=== PATIENT | male | born 1965 | race Caucasian/White ===

== ENCOUNTER 2016-09-24 01:37 | Emergency (ER) | payer OTHER ==
[2016-09-24 04:34] LABS: HEMOGLOBIN 14.6 gm/dl (14.0-17.5); RED BLOOD COUNT 4.68 M/UL (4.20-5.50); WHITE BLOOD COUNT 9.7 K/UL (4.5-11.0)
[2016-09-24 05:00] LABS: BUN/CREATININE RATIO 21 (0-10)
== END 2016-09-24 08:42 | disposition home or self-care (01) ==
LOC: ER1 01:37
PROVIDERS: Physician Assistant
DX: R10.13 Epigastric pain (principal); R74.8 Abnormal levels of other serum enzymes; R11.0 Nausea; I25.10 Atherosclerotic heart disease of native coronary artery without angina pectoris; I25.2 Old myocardial infarction; I10 Essential (primary) hypertension; E78.5 Hyperlipidemia, unspecified; F17.210 Nicotine dependence, cigarettes, uncomplicated; Z79.899 Other long term (current) drug therapy
CPT/HCPCS: 36415; 71010; 80053; 81001; 82550; 82553; 83690; 83874; 84484; 85025; 93005; 99284; J7050; Q0162; Q9962

== ENCOUNTER 2020-07-31 19:17 | Emergency (ER) | payer OTHER ==
[~2020-07-31 19:17] MED LIST: IBUPROFEN600 MG PO; LEVOFLOXACIN500 MG PO; OMNICEF 300 MG300 MG PO; ROBITUSSIN100 MG/53 PO
[2020-07-31 20:10] LABS: HEMOGLOBIN 13.8 gm/dl (14.0-17.5); RED BLOOD COUNT 4.42 M/UL (4.20-5.50); WHITE BLOOD COUNT 7.3 K/UL (4.5-11.0)
[2020-07-31 20:49] LABS: BUN/CREATININE RATIO 22 (0-10)
== END 2020-08-01 00:35 | disposition other institution (70) ==
LOC: ER1 19:17
PROVIDERS: Family Medicine
DX: I65.22 Occlusion and stenosis of left carotid artery (principal); Z20.822 Contact with and (suspected) exposure to COVID-19; R47.01 Aphasia; R82.5 Elevated urine levels of drugs, medicaments and biological substances
CPT/HCPCS: 0240U; 36600; 51702; 70450; 70496; 70498; 71045; 80053; 80307; 81001; 82140; 82550; 82553; 82803; 83605; 83874; 84484; 85025; 85610; 93005; 96374; 96375; 99285; G0480; J2310; Q9967

== ENCOUNTER 2021-03-18 02:35 | Inpatient (IN) | payer OTHER ==
[~2021-03-18] VITALS: Ht 167.6 cm; Wt 68.0 kg
[2021-03-18 06:28] LABS: HEMOGLOBIN 12.7 gm/dl (14.0-17.5); RED BLOOD COUNT 4.1 M/UL (4.20-5.50); WHITE BLOOD COUNT 9.7 K/UL (4.5-11.0)
[2021-03-18 07:01] LABS: BUN/CREATININE RATIO 17 (0-10)
[2021-03-18] MEDS ORDERED: BRILINTA60 MG PO (12:57)
[2021-03-18] MEDS ORDERED: CARVEDILOL6.25 MG PO (12:57)
[2021-03-18] MEDS ORDERED: ASPIRIN81 MG PO (12:58)
[2021-03-18] MEDS ORDERED: SILDENAFIL20 MG PO (13:00)
[2021-03-18] MEDS ORDERED: LIPITOR80 MG PO (13:01)
== END 2021-03-18 16:19 | disposition left against medical advice (07) | DRG 291 ==
LOC: ER1 02:35 → CDU 06:15
PROVIDERS: Emergency Medicine; Internal Medicine; ADMIT Internal Medicine
PROC: B24BZZ4 Ultrasonography of Heart with Aorta, Transesophageal (ICD-10-PCS; principal; 2021-03-18)
DX: I11.0 Hypertensive heart disease with heart failure (principal); J96.01 Acute respiratory failure with hypoxia; I50.43 Acute on chronic combined systolic (congestive) and diastolic (congestive) heart failure; F15.99 Other stimulant use, unspecified with unspecified stimulant-induced disorder; Z20.822 Contact with and (suspected) exposure to COVID-19; I25.10 Atherosclerotic heart disease of native coronary artery without angina pectoris; E78.5 Hyperlipidemia, unspecified; J44.9 Chronic obstructive pulmonary disease, unspecified; F17.210 Nicotine dependence, cigarettes, uncomplicated; Z95.5 Presence of coronary angioplasty implant and graft; Z86.73 Personal history of transient ischemic attack (TIA), and cerebral infarction without residual deficits; Z98.890 Other specified postprocedural states; Z88.0 Allergy status to penicillin; Z82.49 Family history of ischemic heart disease and other diseases of the circulatory system
CPT/HCPCS: ECHO; 36600; 71045; 80053; 80061; 80307; 81001; 82550; 82553; 82803; 83036; 83605; 83874; 83880; 84439; 84443; 84484; 84550; 85025; 85610; 85730; 93005; 93306; 99285; G0378; J1644; J1885; J1940; J2405; U0002

== ENCOUNTER 2021-04-10 17:00 | Inpatient (IN) | payer OTHER ==
[~2021-04-10] VITALS: Ht 167.6 cm; Wt 58.7 kg
[~2021-04-10 17:00] MED LIST changes: +ASPIRIN81 MG PO; +BRILINTA60 MG PO; +CARVEDILOL6.25 MG PO; +LIPITOR80 MG PO; +SILDENAFIL20 MG PO
[2021-04-10 18:35] LABS: RED BLOOD COUNT 4.78 M/UL (4.20-5.50); WHITE BLOOD COUNT 10.3 K/UL (4.5-11.0)
[2021-04-10 18:39] LABS: BUN/CREATININE RATIO 18 (0-10)
[2021-04-10] MEDS ORDERED: PEPCID40 MG PO (22:26)
[2021-04-11 03:10] LABS: HEMOGLOBIN 16.6 gm/dl (14.0-17.5); RED BLOOD COUNT 5.13 M/UL (4.20-5.50); WHITE BLOOD COUNT 8.7 K/UL (4.5-11.0)
[2021-04-11 03:56] LABS: BUN/CREATININE RATIO 22 (0-10)
[2021-04-12 04:11] LABS: HEMOGLOBIN 14.5 gm/dl (14.0-17.5); RED BLOOD COUNT 4.47 M/UL (4.20-5.50); WHITE BLOOD COUNT 16.5 K/UL (4.5-11.0)
[2021-04-12 05:04] LABS: BUN/CREATININE RATIO 31 (0-10)
[2021-04-13 05:10] LABS: HEMOGLOBIN 14.7 gm/dl (14.0-17.5); RED BLOOD COUNT 4.62 M/UL (4.20-5.50)
[2021-04-13 05:18] LABS: WHITE BLOOD COUNT 11.8 K/UL (4.5-11.0)
[2021-04-13 05:32] LABS: BUN/CREATININE RATIO 23 (0-10)
[2021-04-13] MEDS ORDERED: FUROSEMIDE20 MG PO (11:47)
[2021-04-13] MEDS ORDERED: LISINOPRIL5 MG PO (11:47)
[2021-04-13] MEDS ORDERED: NICOTINE PATCH1 EAC2 TOP (11:47)
== END 2021-04-13 19:37 | disposition home or self-care (01) | DRG 286 ==
LOC: ER1 17:00 → PROG CARE 20:14 → CDU 20:14 → PROG CARE 21:42
PROVIDERS: Emergency Medicine; Internal Medicine; Nurse Practitioner; ADMIT Internal Medicine
PROC: 4A023N7 Measurement of Cardiac Sampling and Pressure, Left Heart, Percutaneous Approach (ICD-10-PCS; principal; 2021-04-13)
PROC: B2111ZZ Fluoroscopy of Multiple Coronary Arteries using Low Osmolar Contrast (ICD-10-PCS; 2021-04-13)
DX: I11.0 Hypertensive heart disease with heart failure (principal); J96.01 Acute respiratory failure with hypoxia; I50.23 Acute on chronic systolic (congestive) heart failure; E43 Unspecified severe protein-calorie malnutrition; R64 Cachexia; Z20.822 Contact with and (suspected) exposure to COVID-19; I25.5 Ischemic cardiomyopathy; R47.9 Unspecified speech disturbances; I10 Essential (primary) hypertension; E78.5 Hyperlipidemia, unspecified; G31.84 Mild cognitive impairment of uncertain or unknown etiology; J44.9 Chronic obstructive pulmonary disease, unspecified; F17.210 Nicotine dependence, cigarettes, uncomplicated; I08.1 Rheumatic disorders of both mitral and tricuspid valves; F19.10 Other psychoactive substance abuse, uncomplicated; Z79.82 Long term (current) use of aspirin; Z99.81 Dependence on supplemental oxygen; Z71.6 Tobacco abuse counseling; Z82.49 Family history of ischemic heart disease and other diseases of the circulatory system; Z88.0 Allergy status to penicillin; Z68.20 Body mass index [BMI] 20.0-20.9, adult; I25.2 Old myocardial infarction
CPT/HCPCS: 36415; 36600; 71045; 80048; 80053; 80061; 80307; 81001; 82550; 82553; 82803; 83605; 83690; 83735; 83874; 83880; 84100; 84132; 84484; 84550; 85025; 85379; 85384; 85610; 85730; 87040; 93005; 94640; 94664; 94760; 96374; 96375; 99152; 99153; 99285; C1769; C1887; C1894; J1644; J1650; J1940; J2250; J2930; J3010; J3475; J7040; Q9967; U0002

== ENCOUNTER 2021-06-03 16:41 | Emergency (ER) | payer OTHER ==
[~2021-06-03 16:41] MED LIST changes: +FUROSEMIDE20 MG PO; +LISINOPRIL5 MG PO; +NICOTINE PATCH1 EAC2 TOP; +PEPCID40 MG PO
== END 2021-06-03 17:55 | disposition left against medical advice (07) ==
LOC: ER1 16:41
DX: Z53.21 Procedure and treatment not carried out due to patient leaving prior to being seen by health care provider (principal)

== ENCOUNTER 2021-06-22 14:52 | Inpatient (IN) | payer OTHER ==
[~2021-06-22] VITALS: Ht 170.2 cm; Wt 66.7 kg
[~2021-06-22 14:52] MED LIST changes: -ACETAMINOPHEN500 M1 PO; -ELIQUIS5 MG PO; -FUROSEMIDE80 MG PO; -POTASSIUM CHLO10 ME1 PO
[2021-06-22 16:32] LABS: HEMOGLOBIN 13.5 gm/dl (14.0-17.5); RED BLOOD COUNT 4.33 M/UL (4.20-5.50); WHITE BLOOD COUNT 7.2 K/UL (4.5-11.0)
[2021-06-22 17:56] LABS: BUN/CREATININE RATIO 14 (0-10)
[2021-06-23 06:57] LABS: HEMOGLOBIN 12.7 gm/dl (14.0-17.5); RED BLOOD COUNT 4.1 M/UL (4.20-5.50); WHITE BLOOD COUNT 8.7 K/UL (4.5-11.0)
[2021-06-23 07:25] LABS: BUN/CREATININE RATIO 18 (0-10)
[2021-06-23] MEDS ORDERED: FUROSEMIDE80 MG PO (10:16)
[2021-06-23] MEDS ORDERED: POTASSIUM CHLO10 ME1 PO (10:17)
[2021-06-23] MEDS ORDERED: ELIQUIS5 MG PO (10:20)
[2021-06-23] MEDS ORDERED: ACETAMINOPHEN500 M1 PO (10:20)
[2021-06-24 03:56] LABS: HEMOGLOBIN 13.6 gm/dl (14.0-17.5); RED BLOOD COUNT 4.36 M/UL (4.20-5.50); WHITE BLOOD COUNT 8.4 K/UL (4.5-11.0)
[2021-06-24 04:25] LABS: BUN/CREATININE RATIO 18 (0-10)
[2021-06-24 08:12] LABS: HBSAG SCREEN Negative (Negative); HEP A AB, IGM Negative (Negative); HEP B CORE AB, IGM Negative (Negative); HEP C VIRUS AB 0.1 (0.0-0.9)
[2021-06-24 22:06] LABS: BORDETELLA PARAPERTUSSIS Not Detected (Not Detectd); BORDETELLA PERTUSSIS Not Detected (Not Detectd); CHLAMYDIA PNEUMONIAE Not Detected (Not Detectd); CORONAVIRUS HKU1 Not Detected (Not Detectd); CORONAVIRUS NL63 Not Detected (Not Detectd); CORONAVIRUS OC43 Not Detected (Not Detectd); CORONOAVIRUS 229E Not Detected (Not Detectd); HUMAN METAPNEUMOVIRUS Not Detected (Not Detectd); HUMAN RHINOVIRUS/ENTEROVIRUS Not Detected (Not Detectd); INFLUENZA A Not Detected (Not Detectd); INFLUENZA B Not Detected (Not Detectd); MYCOPLASMA PNEUMONIAE Not Detected (Not Detectd); PARAINFLUENZA VIRUS 1 Not Detected (Not Detectd); PARAINFLUENZA VIRUS 2 Not Detected (Not Detectd); PARAINFLUENZA VIRUS 3 Not Detected (Not Detectd); PARAINFLUENZA VIRUS 4 Not Detected (Not Detectd)
[2021-06-24 23:04] LABS: RESPIRATORY SYNCYTIAL VIRUS DETECTED (Not Detectd); SARS-CoV-2 NOT DETECTED (Not Detectd)
[2021-06-25 03:42] LABS: HEMOGLOBIN 13.2 gm/dl (14.0-17.5); RED BLOOD COUNT 4.24 M/UL (4.20-5.50)
[2021-06-25 04:02] LABS: BUN/CREATININE RATIO 20 (0-10)
[2021-06-26 05:12] LABS: HEMOGLOBIN 13.1 gm/dl (14.0-17.5); RED BLOOD COUNT 4.25 M/UL (4.20-5.50); WHITE BLOOD COUNT 9.7 K/UL (4.5-11.0)
[2021-06-26 05:14] LABS: BUN/CREATININE RATIO 21 (0-10)
[2021-06-27 06:22] LABS: HEMOGLOBIN 13.9 gm/dl (14.0-17.5); RED BLOOD COUNT 4.62 M/UL (4.20-5.50); WHITE BLOOD COUNT 8.9 K/UL (4.5-11.0)
[2021-06-27 07:15] LABS: BUN/CREATININE RATIO 18 (0-10)
[2021-06-28 05:32] LABS: BUN/CREATININE RATIO 26 (0-10)
[2021-06-28] MEDS ORDERED: JANTOVEN7.5 MG PO (10:24)
[2021-06-28] MEDS ORDERED: VALSARTAN80 MG PO (10:24)
[2021-06-28] MEDS ORDERED: DOXYCYCLINE HY100 M2 PO (10:24)
[2021-06-28] MEDS ORDERED: CARVEDILOL12.5 MG PO (10:24)
[2021-06-28] MEDS ORDERED: LASIX40 MG PO (10:24)
== END 2021-06-28 11:00 | disposition left against medical advice (07) | DRG 291 ==
LOC: ER1 14:52 → CDU 18:00 → PROG CARE 18:00
PROVIDERS: Emergency Medicine; Internal Medicine; Physician Assistant; ADMIT Internal Medicine
DX: I11.0 Hypertensive heart disease with heart failure (principal); I50.23 Acute on chronic systolic (congestive) heart failure; J18.9 Pneumonia, unspecified organism; E44.0 Moderate protein-calorie malnutrition; Z20.822 Contact with and (suspected) exposure to COVID-19; F15.10 Other stimulant abuse, uncomplicated; I42.8 Other cardiomyopathies; I25.10 Atherosclerotic heart disease of native coronary artery without angina pectoris; I27.20 Pulmonary hypertension, unspecified; E78.5 Hyperlipidemia, unspecified; I08.1 Rheumatic disorders of both mitral and tricuspid valves; R74.01 Elevation of levels of liver transaminase levels; E87.6 Hypokalemia; I51.3 Intracardiac thrombosis, not elsewhere classified; F17.200 Nicotine dependence, unspecified, uncomplicated; Z95.1 Presence of aortocoronary bypass graft; Z86.73 Personal history of transient ischemic attack (TIA), and cerebral infarction without residual deficits; Z95.5 Presence of coronary angioplasty implant and graft; Z88.0 Allergy status to penicillin; Z91.14 Patient's other noncompliance with medication regimen; Z68.24 Body mass index [BMI] 24.0-24.9, adult; Z79.899 Other long term (current) drug therapy; Z79.82 Long term (current) use of aspirin
CPT/HCPCS: 36415; 71045; 71250; 76705; 80048; 80053; 80074; 80202; 80307; 82550; 82553; 83690; 83735; 83874; 83880; 84100; 84484; 85025; 85610; 85730; 86140; 87633; 93005; 94640; 94645; 94760; 96374; 96375; 99285; J1644; J1940; J1956; J3370; J3475; J7070; U0002

== ENCOUNTER → 2021-06-22 | Outpatient (CLI) | payer OTHER ==
[~2021-06-22] MED LIST changes: +ACETAMINOPHEN500 M1 PO; +ELIQUIS5 MG PO; +FUROSEMIDE80 MG PO; +POTASSIUM CHLO10 ME1 PO
== END ==
LOC: HEART 5 09:30
DX: I50.9 Heart failure, unspecified (principal); I27.20 Pulmonary hypertension, unspecified; I08.1 Rheumatic disorders of both mitral and tricuspid valves
CPT/HCPCS: 93306

== ENCOUNTER 2021-07-06 14:45 | Observation (INO) | payer OTHER ==
[~2021-07-06] VITALS: Ht 165.1 cm; Wt 61.7 kg
[~2021-07-06 14:45] MED LIST changes: -ASPIRIN EC81 MG PO
[2021-07-06 23:10] LABS: HEMOGLOBIN 13.7 gm/dl (14.0-17.5); RED BLOOD COUNT 4.39 M/UL (4.20-5.50); WHITE BLOOD COUNT 9.5 K/UL (4.5-11.0)
[2021-07-06 23:32] LABS: BUN/CREATININE RATIO 34 (0-10)
[2021-07-07 05:36] LABS: HEMOGLOBIN 12.6 gm/dl (14.0-17.5); RED BLOOD COUNT 4.07 M/UL (4.20-5.50); WHITE BLOOD COUNT 8.3 K/UL (4.5-11.0)
[2021-07-07 05:51] LABS: BUN/CREATININE RATIO 33 (0-10)
[2021-07-07] MEDS ORDERED: ASPIRIN EC81 MG PO (12:58)
[2021-07-08 03:26] LABS: HEMOGLOBIN 12.3 gm/dl (14.0-17.5); RED BLOOD COUNT 3.99 M/UL (4.20-5.50); WHITE BLOOD COUNT 7.9 K/UL (4.5-11.0)
[2021-07-08 03:59] LABS: BUN/CREATININE RATIO 31 (0-10)
[2021-07-08] MEDS ORDERED: ELIQUIS5 MG PO (10:01)
== END 2021-07-08 12:30 | disposition home or self-care (01) ==
LOC: ER1 14:45 → CDU 07-07 00:49 → 3 EAST 07-07 22:50
PROVIDERS: Internal Medicine; Physician Assistant; ADMIT Internal Medicine
DX: R79.1 Abnormal coagulation profile (principal); Z20.822 Contact with and (suspected) exposure to COVID-19; I25.10 Atherosclerotic heart disease of native coronary artery without angina pectoris; J44.9 Chronic obstructive pulmonary disease, unspecified; I11.0 Hypertensive heart disease with heart failure; I50.20 Unspecified systolic (congestive) heart failure; F17.210 Nicotine dependence, cigarettes, uncomplicated; Z79.01 Long term (current) use of anticoagulants; Z79.82 Long term (current) use of aspirin; Z79.899 Other long term (current) drug therapy; Z86.73 Personal history of transient ischemic attack (TIA), and cerebral infarction without residual deficits; Z95.5 Presence of coronary angioplasty implant and graft; Z88.0 Allergy status to penicillin
CPT/HCPCS: 36415; 80048; 80053; 83735; 83880; 85025; 85610; 85730; 86850; 86900; 86901; 86927; 96372; 99284; G0378; J3430; P9017; U0002

== ENCOUNTER → 2021-07-06 | Outpatient (CLI) | payer OTHER ==
[~2021-07-06] MED LIST changes: +ACETAMINOPHEN500 M1 PO; +ASPIRIN EC81 MG PO; -ASPIRIN81 MG PO; +CARVEDILOL12.5 MG PO; +DOXYCYCLINE HY100 M2 PO; +ELIQUIS5 MG PO; +FUROSEMIDE80 MG PO; +JANTOVEN7.5 MG PO; +LASIX40 MG PO; +POTASSIUM CHLO10 ME1 PO; +VALSARTAN80 MG PO; +WARFARIN SODIUM5 MG PO
== END ==
LOC: LAB 12:33
DX: I51.3 Intracardiac thrombosis, not elsewhere classified (principal); Z86.2 Personal history of diseases of the blood and blood-forming organs and certain disorders involving the immune mechanism
CPT/HCPCS: 36415; 85610